=== PATIENT | male | born 1955 ===

== ENCOUNTER 2024-10-30 11:35 | Emergency (ER) | payer MEDICARE, SELFPAY ==
[2024-10-30] VITALS (11 sets, daily range): BP systolic 148–164; BP diastolic 82–92; PULSE 69–80; RESP 13–21; TEMP 37.1; O2SAT 94–97; BMI 29.9
--- NOTE | 2024-10-30 12:03 | CRLHL7_ITS ---
For Patients: As a result of the Century Cures Act, medical imaging exams and procedure reports are released immediately into your electronic medical record. You may view this report before your referring provider. If you have questions, please contact your health care provider. Indication : Memory loss. Technique : CT of the brain without intravenous contrast. Comparison: None relevant available at the time of interpretation. Findings: No acute blurring of the martinez-white differentiation. There is no intracranial hemorrhage. The ventricles are proportionate to the cerebral sulci. The 4th ventricle is midline. Basal cisterns appear patent. No abnormal extra-axial fluid collection identified. Mild parenchymal volume loss. There is mild patchy periventricular hypodensity, favored to represent chronic ischemic microvascular disease. There is no intracranial mass, mass effect or midline shift identified. No depressed calvarial fracture. Impression: 1. No acute intracranial process. 2. Mild chronic ischemic microvascular disease. Please note that all CT scans at this facility use dose modulation, iterative reconstruction, and/or weight-based dosing when appropriate to reduce radiation dose to as low as reasonably achievable. Dictated by Rey Martin MD @ 10/30/2024 12:43:42 PM (Electronically Signed)
--- NOTE | 2024-10-30 12:06 | ED_ITS ---
HPI - General Adult General Chief complaint: Altered Mental Status Stated complaint: short term memory loss Time Seen by Provider: 10/30/24 12:06 History of Present Illness HPI narrative: Patient here today with increased confusion starting around 9 am. Asking odd questions and also did not remember working yesterday. Orientated in triage, no unilateral deficits. 69-year-old man presenting to the emergency department with son and spouse with concern of confusion. Apparently had a usual morning. Made breakfast. Abruptly about 3 hours ago began to seem confused with difficulty remembering what had occurred yesterday and even what he had just had for breakfast. No he adache. No visual changes. No weakness is noted. No slurring of speech or word substitution. No chest pain or shortness of breath. No recent fever or cough or cold symptoms. No dizziness. Related Data Home Medications ?Medication ?Instructions ?Recorded ?Confirmed No Known Home Medications 10/30/2410/17 Allergies Allergy/AdvReac Type Severity Reaction Status Date / Time No Known Drug Allergies Allergy Verified 10/30/24 11:49 Review of Systems Status of ROS: Reports: 6 or more systems reviewed and unremarkable except as noted in History and below [facility] Social History Smoking Status: Never smoker How often do you have a drink containing alcohol: never How often do you have six or more drinks on one occasion: Never AUDIT-C Alcohol total score: 0 Non-prescribed substance use: denies use Exam Narrative: Exam Narrative: Pleasant. NAD. Visit is challenged a little bit by language barrier but does speak enough Urdu I think for proper evaluation. Answers questions quickly. Demonstrating some poor recall. Assisted in interview also by spouse and son. Does appear fully oriented. Cranial nerves 2-12 are intact. Pupils are equal. Head is atraumatic. Breathing easily with clear lungs. Heart in regular rate and rhythm without murmur rub or gallop. Is well-perfused peripherally moving all extremities without difficulty. Full strength throughout. Intact heel-to- hook and accurate point point. There is no nystagmus. NIH stroke scale at would estimate is 0. Const: Vital Signs, click to edit/add: Vital Signs - 24 hr 10/30/24 11:56 10/30/24 12:47 10/30/24 12:48 Temperature 98.7 F Pulse Rate 80 77 Pulse Rate [Pulse Oximeter] 79 Respiratory Rate 18 19 Blood Pressure 148/88 H Blood Pressure [Ri ght Upper Arm] 164/82 H Pulse Oximetry 96 94 94 Oxygen Delivery Me thod Room Air 10/30/24 13:02 10/30/24 13:30 10/30/24 13:45 Temperature Pulse Rate 80 74 73 Pulse Rate [Pulse Oximeter] Respiratory Rate 16 21 13 Blood Pressure 148/92 H Blood Pressure [Ri ght Upper Arm] Pulse Oximetry 95 96 95 Oxygen Delivery Me thod 10/30/24 14:02 10/30/24 14:15 10/30/24 14:30 Temperature Pulse Rate 69 73 75 Pulse Rate [Pulse Oximeter] Respiratory Rate Blood Pressure 152/92 H Blood Pressure [Ri ght Upper Arm] Pulse Oximetry 96 96 97 Oxygen Delivery Me thod 10/30/24 14:45 10/30/24 15:00 Temperature Pulse Rate 74 73 Pulse Rate [Pulse Oximeter] Respiratory Rate 18 19 Blood Pressure Blood Pressure [Ri ght Upper Arm] Pulse Oximetry 97 96 Oxygen Delivery Me thod Documenting provider has reviewed patient's vital signs: yes Course Vital Signs Vital signs: Initial Vital Signs Temperature 98.7 F 10/30/24 11:56 Temperature Source Temporal Artery Scan 10/30/24 11:56 Pulse Rate 79 10/30/24 11:56 Respiratory Rate 18 10/30/24 11:56 Blood Pressure 164/82 H 10/30/24 11:56 Blood Pressure Mean 109 H 10/30/24 11:56 Blood Pressure Position Sitting 10/30/24 11:56 Pulse Oximetry 96 10/30/24 11:56 Oxygen Delivery Method Room Air 10/30/24 11:56 Vital Signs Temperature 98.7 F 10/30/24 11:56 Pulse Rate 79 10/30/24 11:56 Respiratory Rate 18 10/30/24 11:56 Blood Pressure 164/82 H 10/30/24 11:56 Pulse Oximetry 96 10/30/24 11:56 Oxygen Delivery Method Room Air 10/30/24 11:56 Temperature 98.7 F 10/30/24 11:56 Pulse Rate 73 10/30/24 15:00 Respiratory Rate 19 10/30/24 15:00 Blood Pressure 152/92 H 10/30/24 14:02 Pulse Oximetry 96 10/30/24 15:00 Oxygen Delivery Method Room Air 10/30/24 11:56 Medications Administered Medications: Discontinued Medications Generic Name Dose Route Start Last Admin Trade Name Essence PRN Reason Stop Dose Admin Sodium Chloride 1,000 mls @ 1,000 mls/hr 10/30/24 12:11 10/30/24 13:29 0.9 % Sodium Chloride 1000 Ml IV 10/30/24 13:10 Infused .Q1H ONE Infusion Medical Decision Making MDM Narrative Medical decision making narrative: Mildly elevated blood pressure on initial presentation but other than confusion do not see stroke symptoms. Neuro had been contacted during triage. I did speak to them once able to go back and interview and examine again. Mr. Valdez had been directed quickly to noncontrast head CT. Head CT independently reviewed by me looks to be WNL. Suspicion at this point would be transient global amnesia. I would continue to monitor for clearing or evolution of further symptoms. I have requested IV fluid bolus. Standard labs looking for evidence of cardiac injury or infection. Monitored on cardiac catheterization technologist during time in the emergency department; there are no events. On reassessment has been improving with his recall. No further deficits. Did discuss with Neurology further cares. Questions were raised about possible admission for monitoring and MRI but admittedly this does not appear to be a stroke-like event and most consistent with TGA. No further investigation really necessary unless not cleared or markedly more cleared in about 24 hours of onset. Radiology over-read below Indication : Memory loss. Technique : CT of the brain without intravenous contrast. Comparison: None relevant available at the time of interpretation. Findings: No acute blurring of the martinez-white differentiation. There is no intracranial hemorrhage. The ventricles are proportionate to the cerebral sulci. The 4th ventricle is midline. Basal cisterns appear patent. No abnormal extra-axial fluid collection identified. Mild parenchymal volume loss. There is mild patchy periventricular hypodensity, favored to represent chronic ischemic microvascular disease. There is no intracranial mass, mass effect or midline shift identified. No depressed calvarial fracture. Impression: 1. No acute intracranial process. 2. Mild chronic ischemic microvascular disease. Please note that all CT scans at this facility use dose modulation, iterative reconstruction, and/or weight-based dosing when appropriate to reduce radiation dose to as low as reasonably achievable. Dictated by Rey Martin MD @ 10/30/2024 12:43:42 PM See patient discharge plan for further discussion Stay well-hydrated. Hopefully you can get a good night's sleep tonight. I would expect your recall to continually improve. If it does not in 30 hours after onset, would follow up for further evaluation. Can probably do this in primary care. If however you begin to have new and focal weakness, slurring of speech, losses of sensation otherwise, would be seen more emergently. Lab Data Lab results reviewed: Yes I reviewed the patient's lab results Labs: Lab Results 10/30/24 10/30/24 10/30/24 Range/Units 12:11 12:25 13:22 WBC 8.50 (4.50-11.00) K/uL RBC 5.67 (4.30-5.90) m/uL Hgb 16.8 (13.5-17.5) gm/dL Hct 50.7 (37.0-53.0) % MCV 89 (80-100) fL MCH 30 (26-34) pg MCHC 33 (32-36) gm/dL RDW Coeff of S[place] 13.3 (11.5-15.5) % Plt Count 224 (140-440) K/uL Neut % (Auto) 75.9 H (42.0-72.0) % Lymph % (Auto) 14.7 L (20-44) % Woodward % (Auto) 7.6 (0.0-11.0) % Eos % (Auto) 1.5 (0.0-7.0) % Baso % (Auto) 0.1 (0.0-3.0) % Neut # (Auto) 6.50 (1.7-7.0) K/uL Lymph # (Auto) 1.20 (0.90-2.90) K/uL Woodward # (Auto) 0.60 (0.00-0.90) K/UL Eos # (Auto) 0.13 (0.00-0.50) K/uL Baso # (Auto) 0.01 (0.00-0.30) K/uL Abs Immat Gran (auto) 0.02 (0.00-0.30) K/uL Imm/Tot Granulo (auto) 0.2 % Sodium 139 (135-149) mmol/L Potassium 3.8 (3.6-5.1) mmol/L Chloride 106 (96-114) mmol/L Carbon Dioxide 26 (20-32) mmol/L Anion Gap 7 (7-15) mEq/L BUN 26 (7-30) mg/dL Creatinine 1.1 (0.5-1.5) mg/dL Estimated Creat Clear 51.58 Estimated GFR 72 ml/min Glucose 97 (60-115) mg/dL Calcium 8.4 (8.4-10.6) mg/dL Troponin I < 0.01 (0.01-0.04) ng/mL C-Reactive Protein < 0.5 L (0.5-1.0) mg/dL NT-Pro-B Natriuret Pep < 20 (See Note) pg/mL Urine Color Yellow (Yellow) Urine Appearance Clear (Clear) Urine pH 8.0 (5.0-8.5) Ur Specific Parks 1.020 (1.000-1.030) Urine Protein Negative (Negative) Urine Glucose (UA) Negative (Negative) Urine Ketones Negative (Negative) Urine Blood Negative (Negative) Urine Nitrite Negative (Negative) Urine Bilirubin Negative (Negative) Urine Urobilinogen 0.2 (0.2-1.0) Ur Leukocyte Esterase Negative (Negative) Urine RBC 0-2 (0-2) Urine WBC 0-2 (0-5) Ur Squamous Epith Cells None (None-Few) Urine Bacteria None (None) POC Troponin I 0.01 (0.01-0.04) ng/ml ECG Data Attestation: I personally reviewed and interpreted this ECG as follows: (Normal sinus rhythm. Rate of 76. Evolving right bundle. No prior for comparison) Discharge Plan Discharge Clinical Impression: Transient global amnesia Patient Disposition: Home w/ Parent or Adult Condition: Improved Instructions: Transient Global Amnesia (ED) Additional Instructions: Stay well-hydrated. Hopefully you can get a good night's sleep tonight. I would expect your recall to continually improve. If it does not in 30 hours after onset, would follow up for further evaluation. Can probably do this in primary care. If however you begin to have new and focal weakness, slurring of speech, losses of sensation otherwise, would be seen more emergently. Prescriptions: No Action No Known Home Medications Follow Up/Referrals: Provider,Not a Local [Primary Care Provider, Family Practice] Stand Alone Forms: [employer] Info Instructions
[2024-10-30 12:41] LABS: Hematocrit* 50.7 % (37.0-53.0); Hemoglobin* 16.8 gm/dL (13.5-17.5); Immature Granulocytes Abs Auto 0.02 K/uL (0.00-0.30); Immature Granulocytes Pct Auto 0.2 %; Mean Corpuscular HGB Conc 33 gm/dL (32-36); Mean Corpuscular Hemoglobin 30 pg (26-34); Mean Corpuscular Volume 89 fL (80-100); RDW Coefficient of Variation % 13.3 % (11.5-15.5); Red Blood Count* 5.67 m/uL (4.30-5.90); White Blood Count* 8.50 K/uL (4.50-11.00)
[2024-10-30 12:42] LABS: Troponin, Point-of-Care* 0.01 ng/ml (0.01-0.04)
[2024-10-30 12:42] LABS: Lymphocytes Absolute Auto 1.20 K/uL (0.90-2.90); Slide Review Reflex No
[2024-10-30 12:54] LABS: Chloride* 106 mmol/L (96-114); Potassium* 3.8 mmol/L (3.6-5.1); Sodium* 139 mmol/L (135-149)
[2024-10-30 12:57] LABS: Anion Gap 7 mEq/L (7-15); Blood Urea Nitrogen* 26 mg/dL (7-30); Calcium* 8.4 mg/dL (8.4-10.6); Carbon Dioxide* 26 mmol/L (20-32); Creatinine* 1.1 mg/dL (0.5-1.5); Est. Creatinine Clearance* 51.58; Estimated Glomerular Filt Rate 72 ml/min; Glucose* 97 mg/dL (60-115)
[2024-10-30 13:12] LABS: NT Pro B Type NatriureticPept* < 20 pg/mL (See Note)
[2024-10-30 13:32] LABS: Appearance Urine Clear (Clear)
== END 2024-10-30 15:05 | disposition home or self-care (01) ==
PROVIDERS: Emergency Provider Family Medicine
DX: G45.4 Transient global amnesia (principal)
CPT/HCPCS: 36415; 70450; 80048; 81001; 83880; 84484; 85025; 86140; 93005; 99284; J7030